=== PATIENT | female | born 1975 | race African-American/Black ===

== ENCOUNTER 2021-08-04 09:49 | Emergency (ER) | payer OTHER ==
[~2021-08-04] VITALS: Ht 172.7 cm; Wt 125.6 kg
[2021-08-04] MEDS ORDERED: ONDANSETRON HCL INJ 2MG/ML 2ML 2 MG/ML VIAL IV STA (10:32)
[2021-08-04] MEDS ORDERED: SODIUM CHLORIDE 0.9% 1000ML 1,000 ML IV SCH (10:45)
[2021-08-04] MEDS ORDERED: Morphine 4mg Syringe 4 MG/ML INJ IV ONE (10:45)
[2021-08-04] MEDS ORDERED: IOPAMIDOL 370 MG/ML 100 ML INFUS..BTL INJ ONE (11:07)
[2021-08-04] MEDS ORDERED: Morphine 4mg Syringe 4 MG/ML INJ ONE (11:23)
[2021-08-04] MEDS ORDERED: ONDANSETRON HCL INJ 2MG/ML 2ML 2 MG/ML VIAL ONE (11:23)
[2021-08-04] MEDS ORDERED: NAPROSYN500 MG PO (14:50)
[2021-08-04] MEDS ORDERED: METHOCARBAMOL750 MG PO (14:50)
[2021-08-04] MEDS ORDERED: ULTRAM 50MG50 MG PO (14:51)
== END 2021-08-04 15:08 | disposition home or self-care (01) ==
LOC: FSED 10:02
DX: R10.31 Right lower quadrant pain (principal); M54.50 Low back pain, unspecified; R30.0 Dysuria; R11.0 Nausea; E66.01 Morbid (severe) obesity due to excess calories
CPT/HCPCS: 74176; 80048; 80076; 81003; 81025; 85025; 96374; 96375; 99283; J2270; J2405; Q9967